=== PATIENT | male | born 1930 | race Caucasian/White ===

== ENCOUNTER 2016-08-28 11:46 | Emergency (ER) | payer MEDICARE ==
[~2016-08-28] VITALS: Ht 175.3 cm; Wt 78.2 kg
[~2016-08-28 11:46] MED LIST: ASPI81TA2 PO; HYDR25TA4 PO; POTA10TA23 PO; [UNRECOGNIZED DRUG - CODE] PO
[2016-08-28 11:50] VITALS: BP 138/72; PULSE 140; RESP 20; O2SAT 97
[2016-08-28] MEDS ORDERED: Propofol 10 mg/mL 20 mL Inj ONE (12:00)
[2016-08-28 12:01] VITALS: BP 99/63; PULSE 135; RESP 20; O2SAT 97
--- NOTE | 2016-08-28 12:04 | ED.REPORT ---
HPI-Chest Pain 40 and Over Date of Service Aug 28, 2016 ED Provider: Yonatan Gilmore MD The patient is an 86 year old male with history of atrial fibrillation on warfarin, who presents to the emergency department complaining of right-sided chest pain that began 1 hour prior to arrival while he was in the grocery store. His pain radiates into his right arm and neck. He has had similar symptoms in the past when he was in atrial fibrillation. Nursing Notes Stated Complaint: CHEST PAIN/LEFT ARM PAIN Chief Complaint: Chest Pain Nursing Notes Reviewed: Yes Allergies: Coded Allergies: atenolol (Verified Allergy, Unknown, 08/28/16) Scheduled Aspirin-Expunged Drug, Do Not Renew! (Aspirin-Expunged Drug, Do Not Renew!) 81 Mg Tablet 81 MG PO DAILY Fosinopril-Expunged Drug, Do Not Renew! (Monopril-Expunged Drug, Do Not Renew!) 40 Mg Tab 40 MG PO DAILY Hydrochlorothiazide-Expunged, Do Not Renew! (Hydrochlorothiazide-Expunged, Do Not Renew!) 25 Mg Tablet 25 MG PO DAILY Potassium Chl-Expunged Drug, Do Not Renew! (T-Ofs-Lypemazt Drug, Do Not Renew!) 10 Meq Tab.prt.sr 10 MEQ PO DAILY General Time Seen by MD: 11:54 Chief Complaint Chest pain Hx Obtained From: Patient, EMS Arrived By: Ambulance Sudden in Onset?: Yes Onset Occurred: 1 - 4 hours ago Symptom Duration: Since onset Location: : Chest right Quality: Painful Radiation: : Neck: Shoulder right Severity: Current: Moderate Severity: Maximum: Severe Recent Healthcare: No recent hospitalization Similar Sx Previous: Yes Past Medical History Past Medical History Atrial fibrillation on Warfarin Family History Noncontributory Social History Other Social History: Good social support, Local resident Ambulatory Status Independent Review of Systems Cardiovascular: Reports: Chest pain Musculoskeletal: Reports: Joint pain, Neck pain Complete sys rev & neg: except as marked. Physical Exam Initial Vital Signs Vital Signs (First) Date Time Temp Pulse Resp B/P Pulse Ox O2 Delivery O2 Flow Rate FiO2 08/28/16 11:50 36.8 140 20 138/72 97 Room Air Initial VS: Reviewed Head / Eyes: Atraumatic, Normocephalic, PERRL ENT: Mucous membranes moist, Conjunctiva normal, No scleral icterus Neck: Supple, Non-tender, Full range of motion Lymphatic: No lymphadenopathy Extremities: Vascular intact, Neuro intact, No swelling, No tenderness Skin: Warm, Dry, No cyanosis Neurologic: Alert, Oriented, Nonfocal Psychiatric: Mood/affect normal, Behavior normal, Normal thought content General/Constitutional: Awake, Alert, No acute distress, Well appearing Respiratory / Chest: Atraumatic, Breath sounds NL, Breath sounds = bilat, No respiratory distress, No rales, No rhonchi, No wheezing, No stridor, No chest tenderness Cardiovascular: Heart sounds NL Heart Rate / Rhythm: Positive: Irreg irregular rhythm, Tachycardia Abdomen: Atraumatic, Soft, Non-tender, McBurney's non-tender, No guarding, No rebound, BS normoactive, No distention, No hernia, No palpable mass Interpretation & Diagnostics Lab Results Interpretation Result Diagram: 08/28/16 1200 08/28/16 1200 Test 08/28/16 12:00 White Blood Count 7.7th/mm3 (3.8-10.1) Red Blood Count 4.76mil/mm3 (4.40-5.80) Hemoglobin 14.5g/dL (13.8-17.2) Hematocrit 42.5% (41.0-50.0) Mean Corpuscular Volume 89.3fL (81-100) Mean Corpuscular Hemoglobin 30.5pg (27.0-35.0) Mean Corpuscular Hemoglobin Concent 34.1% (32.0-37.0) Red Cell Distribution Width 12.4% (12.3-15.4) Platelet Count 218bil/L (150-400) Neutrophils (%) (Auto) 62.5% (40-74) Lymphocytes (%) (Auto) 23.6% (14-46) Monocytes (%) (Auto) 11.9% (4-12) Eosinophils (%) (Auto) 1.6% (0-5) Basophils (%) (Auto) 0.3% (0-3) Prothrombin Time 24.0sec (8.1-12.5) Prothromb Time International Ratio 2.21ratio Sodium Level 140mEq/L (134-144) Potassium Level 4.2mEq/L (3.5-5.2) Chloride Level 99mEq/L (97-108) Carbon Dioxide Level 25mmol/L (18-29) Blood Urea Nitrogen 28mg/dL (8-27) Creatinine 1.12mg/dL (0.76-1.27) Estimat Glomerular Filtration Rate 66mL/min (>59) Glucose Level 112mg/dL (60-99) Calcium Level 9.7mg/dL (8.5-10.1) Magnesium Level 2.3mg/dL (1.6-2.6) Total Bilirubin 0.5mg/dL (0.0-1.2) Aspartate Amino Transf (AST/SGOT) 24U/L (0-50) Alanine Aminotransferase (ALT/SGPT) 21U/L (0-44) Alkaline Phosphatase 63U/L (25-160) Troponin T < 0.010ug/L (0.0-0.011) Total Protein 7.3g/dL (6.4-8.4) Albumin 4.4g/dL (3.4-5.0) ECG Interpretation ECG Interpretation: Atrial fibrillation with a rate of 123 LBBB Time: 11:58 Interpreted by: ED physician ECG Interpretation: After electrocardioversion: Sinus rhythm with a rate of 74 LBBB Time: 12:15 Interpreted by: ED physician X-Ray Chest Interpretation Chest Xray Interpretation: IMPRESSION: 1. No acute cardiopulmonary disease. 2. Stable right mid lung nodule. Dictated by: Juan Carlos Irby M.D. on 08/28/2016 at 12:58 Interpretation / Wet Read by: Interpret - Radiologist Procedures Electrical Cardioversion Electrical Cardioversion: Sinus rhythm with a rate in the 60s. Time: 12:14 Procedure Performed by: ED physician Indication: Atrial fibrillation Consent / Setup / Site Prep: Informed consent provided, Consent from patient , Time-out performed, Placed on oxygen, Placed on pulse oximeter, Place on library monitor, Hand hygiene observed Procedural Sedation/Analgesia: Sedation: Propofol (40) Joules: 150 Procedure Successful: Yes Post-Procedure Rhythm: Normal sinus rhythm Post-Procedure / Complications: No complications, Condition improved, Tolerated procedure well, Patient stable Proced Mod Sedation/Analgesia Time: 12:12 Procedure Performed by: ED physician Sedation Time: 10 - 15 min Consent / Setup: Informed consent provided, Consent from patient, Time-out performed, Hand hygiene observed, Head of bed at 30-60 deg Indication: Other (electrocardioversion) Preparation: monitoring analyst applied, Pulse oximeter applied, Constant attendance, IV access established, Eval last meal time, Supplemental oxygen, Procedure explained, Suction available, End tidal CO2 mon applied VS Prior to Procedure: O2 saturation normal, Blood pressure normal, Respiratory rate normal Airway Exam: Normal anatomy CVS/Resp Exam: Normal breath sounds, Normal heart sounds Neuro Exam: Alert, No acute distress, Responsive Sedation: Sedation: Propofol (40) Response During Procedure: Oxygenation stable, Sedation appropriate, Vital signs stable Complications During/After: None Reversal: None required Mental Status After Procedure: Alert, Oriented X3, Response to verbal stim, Response to painful stim, Normal per age, At patient's baseline Post-Procedure: Alert prior to discharge, Ambulatory with assist, Pt rtn pre- proc baseline, Vital signs normal Attestation: I performed procedure, I performed sedation Re-Eval/Medical Decision Med Decision/Clinical Course Emergent cardioversion was accomplished because of unstable atrial fibrillation with rapid ventricular response. The patient was suffering from chest pain with a heart rate of 140. Adenosine was insufficient to control the rate and therefore biphasic cardioversion synchronized at 150 J was accomplished. Source of Hx: Old records Time of Eval: 11:58 Re-Evaluation/Progress Note: Administered adenosine at this time. This was not successful, will prepare for cardioversion. Time of Eval: 12:54 Re-Evaluation/Progress Note: The patient is feeling much better. Time of Eval: 13:10 Re-Evaluation/Progress Note: Rechecked the patient. He is feeling much better. Discussed plan for discharge. All questions were addressed. Counseled Regarding: Diagnosis, Lab results, Need for follow-up, When/why to return to ED Discharge & Departure Primary Impression: Atrial fibrillation with rapid ventricular response Disposition: Home Discharge Condition All VS Reviewed: Yes Condition: Stable Patient Instructions: Atrial Fibrillation (ED) Additional Instructions: Thank you for entrusting us with your care today. We were able to convert your heart rhythm into a normal sinus rhythm. Continue taking your previously prescribed medication. Followup with your regular doctor in the next few days for re-evaluation. Please return to the emergency department for recurrent symptoms, shortness of breath, lightheadedness, or any other new or concerning symptoms. Referrals: Mukul Reyes MD (PCP) Scribe Attestation Portions of this note were transcribed by Liz Mireles. Dr. Mando Wilson personally performed the history, physical exam and medical decision-making; I reviewed and confirmed the accuracy of the information in the transcribed note. Signed by: Cortez Moctezuma, 08/28/2016 at 1315. copies to: Mukul Reyes MD, Kirk H MD Aug 28, 2016 12:04 Liz Mireles Aug 28, 2016 12:08
[2016-08-28] MEDS ORDERED: Propofol 10 mg/mL 20 mL Inj IVPUSH ONE (12:05)
[2016-08-28 12:14] LABS: BASOPHILS % (AUTO) 0.3 % (0-3); EOSINOPHILS % (AUTO) 1.6 % (0-5); MONOCYTES % (AUTO) 11.9 % (4-12); Mean Corpuscular Hemoglobin 30.5 pg (27.0-35.0); Mean Corpuscular Volume 89.3 fL (81-100); NEUTROPHILS % (AUTO) 62.5 % (40-74); Platelet Count 218 bil/L (150-400)
[2016-08-28 12:52] LABS: Magnesium 2.3 mg/dL (1.6-2.6)
[2016-08-28 12:53] LABS: TROPONIN T < 0.010 ug/L (0.0-0.011)
--- NOTE | 2016-08-28 13:03 | DRSVH ---
PROCEDURE: X-RAY CHEST ONE VIEW, PORTABLE ([id number]) INDICATIONS: Chest pain TECHNIQUE: One view of the chest was acquired. COMPARISON: [facility]2015[facility] 11[facility]04 [facility] [facility], CR, CHEST 2VW, 05/01/2007, 9:55. [facility], RG, CHEST 2 VW , 11/03/1997, 9:11. [facility], CR, CH EST 1VW (PORTABLE), 01/17/2012, 11:57. FINDINGS: Surgical changes and devices: None. Lungs and pleura: There is a 1.1 x 1.6 cm nodule in the right mid lung zone, which is unchanged in s e compared to 01/17/2012. No pleural effusions or pneumothorax. Mediastinum: Mediastinal contours appear normal. Heart size is normal. Bones and chest wall: No suspicious bony lesions. Overlying soft tissues appear unremarkable. IMPRESSION: 1. No acute cardiopulmonary disease. 2. Stable right mid lung nodule. Dictated by: Juan Carlos Irby M.D. on 08/28/2016 at 12:58 Approved by: Juan Carlos Irby M.D. on 08/28/2016 at 13:01
[2016-08-28 13:16] LABS: INR 2.21 ratio
[2016-08-28 13:58] VITALS: BP 110/57; PULSE 53; RESP 14; O2SAT 96
== END 2016-08-28 13:59 | disposition home or self-care (01) ==
LOC: SED 11:46
DX: I48.91 Unspecified atrial fibrillation (principal); I44.7 Left bundle-branch block, unspecified; Z79.01 Long term (current) use of anticoagulants; Z79.82 Long term (current) use of aspirin; Z88.8 Allergy status to other drugs, medicaments and biological substances